=== PATIENT | female | born 1955 | race Caucasian/White ===

== ENCOUNTER 2019-04-01 04:37 | Inpatient (IN) ==
[2019-04-01] MEDS ORDERED: SODIUM CHLORIDE 0.9% 1,000 ML IV STA ×2 (04:43→04:44)
[2019-04-01] MEDS ORDERED: ONDANSETRON 4 MG/2 ML VIAL IV ONE (04:43)
[2019-04-01 05:23] LABS: Basophils % 0.3 % (0.0-0.8); Hematocrit 38.8 VOL% (35.7-47.0); Hemoglobin 12.4 GM/DL (12.0-16.0); Immature Granulocytes % 0.3 %; Immature Granulocytes Absolute 0.02 #; Lymphocytes # 0.3 10*3/uL (1.4-4.0); Lymphocytes % 3.3 % (21.3-54.2); Mean Platelet Volume 8.6 FL (9.6-12.0); Monocytes % 2.1 % (1.7-12.7); Platelet Count 290 T/CUMM (130-400); Red Cell Distribution Width 12.4 % (9.3-17.3); White Blood Count 7.5 T/CUMM (4-12)
[2019-04-01 05:30] LABS: INR 0.9; PT Patient Result 10.2 SECS
[2019-04-01 05:42] LABS: Band Neutrophils 7 % (0-10); Hypochromasia Slight; Lymphocytes 7 % (20-55); Ovalocytes Slight; Platelet Estimate Adequate; Segmented Neutrophils 84 % (50-85); Total Cells Counted 100
[2019-04-01] MEDS ORDERED: PANTOPRAZOLE 40 MG VIAL IV STA (05:46)
[2019-04-01 05:51] LABS: Alanine Aminotransferase 12 U/L (13-56); Albumin 2.8 G/DL (3.4-5.0); Alkaline Phosphatase 59 U/L (45-117); Aspartate Amino Transferase 8 U/L (0-37); Bilirubin,Total < 0.39 MG/DL (0.2-1.0); Blood Urea Nitrogen 16 MG/DL (7-18); Calcium 8.3 MG/DL (8.5-10.1); Glucose 103 MG/DL (74-106); Osmolality,Calculated 277.5 MOS/KG (273-304); Total Protein 5.2 G/DL (6.4-8.3)
[2019-04-01] MEDS ORDERED: LIDOCAINE 1%/EPI INJ 20 ML VIAL ONE (08:19)
[2019-04-01] MEDS ORDERED: BUPIVACAINE 0.5% 50 ML VIAL ONE (08:19)
[2019-04-01] MEDS ORDERED: SUGAMMADEX 200 MG/2 ML VIAL IV ONE (08:23)
[2019-04-01] MEDS ORDERED: TISSUE ADHESIVE 1 EACH APPLICATOR TOP ONE (08:24)
[2019-04-01] MEDS ORDERED: MIDAZOLAM 2 MG/2 ML VIAL ONE (08:59)
[2019-04-01] MEDS ORDERED: DESFLURANE 1 UNIT/15 MINUTE INH ONE (08:59)
[2019-04-01] MEDS ORDERED: LACTATED RINGERS 1,000 ML IV ONE (09:00)
[2019-04-01] MEDS ORDERED: ONDANSETRON 4 MG/2 ML VIAL ONE (09:00)
[2019-04-01] MEDS ORDERED: ETOMIDATE 40 MG/20 ML VIAL IV ONE (09:00)
[2019-04-01] MEDS ORDERED: SUCCINYLCHOLINE 200 MG/10 ML VIAL ONE (09:00)
[2019-04-01] MEDS ORDERED: ROCURONIUM 100 MG/10 ML VIAL IV ONE (09:00)
[2019-04-01] MEDS ORDERED: ACETAMINOPHEN 1,000 MG/100 ML VIAL IV ONE (09:00)
[2019-04-01] MEDS ORDERED: fentaNYL 100 MCG/2 ML VIAL ONE (09:00)
[2019-04-01] MEDS ORDERED: KETOROLAC 30 MG/1 ML VIAL ONE (09:00)
[2019-04-01] MEDS ORDERED: PROMETHAZINE 25 MG/1 ML VIAL IM PRN (10:00)
[2019-04-01 11:08] LABS: Basophils % 0.2 % (0.0-0.8); Hematocrit 33.7 VOL% (35.7-47.0); Hemoglobin 10.7 GM/DL (12.0-16.0); Immature Granulocytes % 0.3 %; Immature Granulocytes Absolute 0.03 #; Lymphocytes # 0.4 10*3/uL (1.4-4.0); Lymphocytes % 4.4 % (21.3-54.2); Mean Corpuscular HGB Conc 31.8 GM/DL (32-36); Mean Corpuscular Volume 96.8 FL (87-102); Mean Platelet Volume 8.7 FL (9.6-12.0); Neutrophils % 92.1 % (38.7-73.9); Platelet Count 261 T/CUMM (130-400); Red Blood Count 3.48 MC/CUMM (3.8-5.5); Red Cell Distribution Width 12.6 % (9.3-17.3); White Blood Count 8.9 T/CUMM (4-12)
[2019-04-01 11:31] LABS: Band Neutrophils 3 % (0-10); Lymphocytes 10 % (20-55); Segmented Neutrophils 84 % (50-85); Total Cells Counted 100
[2019-04-01 11:32] LABS: Hypochromasia Slight; Ovalocytes Slight; Platelet Estimate Adequate
[2019-04-01 11:41] LABS: Calcium 7.7 MG/DL (8.5-10.1); Osmolality,Calculated 281.3 MOS/KG (273-304)
[2019-04-01] MEDS: LACTATED RINGERS 1,000 ML IV SCH ×2 (11:56→18:37)
[2019-04-01] MEDS: PANTOPRAZOLE 40 MG TABLET PO SCH ×2 (11:57→22:59)
[2019-04-01] MEDS: CLARITHROMYCIN 500 MG TABLET PO SCH (11:57)
[2019-04-01] MEDS: AMOXICILLIN 500 MG CAPSULE PO SCH ×2 (11:57→22:59)
[2019-04-01] MEDS ORDERED: KETOROLAC 15 MG/1 ML VIAL IV SCH (15:00)
[2019-04-01] MEDS: HYDROmorphone 2 MG/1 ML VIAL IV PRN ×2 (16:10→22:58)
[2019-04-01] MEDS: ONDANSETRON 4 MG/2 ML VIAL IV PRN (16:15)
[2019-04-02] MEDS: CLARITHROMYCIN 500 MG TABLET PO SCH ×3 (01:30→21:27)
[2019-04-02] MEDS: LACTATED RINGERS 1,000 ML IV SCH ×3 (02:13→19:44)
[2019-04-02 05:55] LABS: Basophils % 0.3 % (0.0-0.8); Eosinophils % 0.3 % (0.00-10.9); Hematocrit 34.7 VOL% (35.7-47.0); Hemoglobin 11.1 GM/DL (12.0-16.0); Immature Granulocytes % 0.4 %; Immature Granulocytes Absolute 0.05 #; Lymphocytes # 0.7 10*3/uL (1.4-4.0); Lymphocytes % 5.6 % (21.3-54.2); Mean Corpuscular Volume 95.9 FL (87-102); Mean Platelet Volume 8.9 FL (9.6-12.0); Monocytes % 2.6 % (1.7-12.7); Neutrophils % 90.8 % (38.7-73.9); Platelet Count 259 T/CUMM (130-400); Red Blood Count 3.62 MC/CUMM (3.8-5.5); Red Cell Distribution Width 12.8 % (9.3-17.3); White Blood Count 11.8 T/CUMM (4-12)
[2019-04-02 06:08] LABS: Calcium 8.9 MG/DL (8.5-10.1); Osmolality,Calculated 272.7 MOS/KG (273-304)
[2019-04-02] MEDS: ENOXAPARIN 40 MG/0.4 ML SYRINGE SUBCUT SCH (06:12)
[2019-04-02 06:31] LABS: Band Neutrophils 2 % (0-10); Hypochromasia 1+; Lymphocytes 8 % (20-55); Platelet Estimate Adequate; Segmented Neutrophils 85 % (50-85); Total Cells Counted 100
[2019-04-02 06:32] LABS: Ovalocytes Slight
[2019-04-02] MEDS: PANTOPRAZOLE 40 MG TABLET PO SCH ×2 (08:59→21:27)
[2019-04-02] MEDS: AMOXICILLIN 500 MG CAPSULE PO SCH ×2 (08:59→21:27)
[2019-04-02] MEDS: ONDANSETRON 4 MG/2 ML VIAL IV PRN (12:57)
[2019-04-02] MEDS ORDERED: diphenhydrAMINE CAP 25 MG CAPSULE PO PRN (21:35)
[2019-04-03] MEDS: ENOXAPARIN 40 MG/0.4 ML SYRINGE SUBCUT SCH (06:17)
[2019-04-03] MEDS: LACTATED RINGERS 1,000 ML IV SCH (08:35)
[2019-04-03] MEDS: CLARITHROMYCIN 500 MG TABLET PO SCH (09:01)
[2019-04-03] MEDS: PANTOPRAZOLE 40 MG TABLET PO SCH (09:01)
[2019-04-03] MEDS: AMOXICILLIN 500 MG CAPSULE PO SCH (09:01)
[2019-04-03 16:55] VITALS: BP 147/81
== END 2019-04-03 17:45 | disposition home or self-care (01) | DRG 326 ==
LOC: N.ED 04:37 → N.5E 06:35 → N.EDINP 08:44 → N.5E 10:17 → N.3E 20:11 → N.5E 20:13 → N.3E 20:42
PROVIDERS: ADMIT Surgery; ATTEND Surgery